=== PATIENT | female | born 1985 | race Caucasian/White ===

== ENCOUNTER 2017-01-18 12:11 | Emergency (ER) | payer SELFPAY ==
[~2017-01-18] VITALS: Ht 167.6 cm; Wt 59.0 kg
[2017-01-18] MEDS ORDERED: SODIUM CHLORIDE 0.9% 1,000ML IVBOLUS ONE (12:30)
[2017-01-18] MEDS ORDERED: ONDANSETRON 2MG/ML, 2ML IM ONE (12:30)
[2017-01-18] MEDS ORDERED: SODIUM CHLORIDE FLUSH 10ML SYR IVF ONE (12:30)
[2017-01-18 12:48] LABS: HEMOGLOBIN 12.7 g/dL (11.7-16.4)
[2017-01-18 12:58] LABS: ASPARTATE AMINO TRANSFERASE 32 U/L (15-37); BLOOD UREA NITROGEN 13 mg/dL (7-18)
[2017-01-18 13:05] LABS: IS PT STATUS REG ER OR PRE ER? YES
[2017-01-18] MEDS ORDERED: ONDANSETRON 2MG/ML, 2ML ONE (13:21)
[2017-01-18] MEDS ORDERED: LORazepam 2 MG/ML, 1ML ONE (13:22)
[2017-01-18] MEDS ORDERED: THIAMINE 100 MG in SODIUM CHLORIDE 0.9% 50 ML IVPB ONE (13:30)
[2017-01-18] MEDS: LORazepam 2 MG/ML, 1ML IVPush PRN ×2 (13:31→13:36)
[2017-01-18] MEDS ORDERED: TRAZ150T68 PO (13:34)
[2017-01-18 16:51] VITALS: BP 137/77
== END 2017-01-18 16:59 | disposition home or self-care (01) ==
LOC: ED 14:31
DX: F10.239 Alcohol dependence with withdrawal, unspecified (principal); R45.1 Restlessness and agitation; R45.4 Irritability and anger; I10 Essential (primary) hypertension; F17.200 Nicotine dependence, unspecified, uncomplicated
CPT/HCPCS: 36415; 71010; 80053; 80307; 84484; 85025; 96372; 96374; 96375; 99285; J2060; J2405; J3411; J7030